=== PATIENT | female | born 1960 | race Caucasian/White ===

== ENCOUNTER 2017-03-11 20:52 | Emergency (ER) | payer SELFPAY ==
[~2017-03-11] VITALS: Ht 170.2 cm; Wt 70.0 kg
[2017-03-11 20:55] VITALS: BP 148/67; PULSE 80; RESP 16; TEMP 98.6; O2SAT 97
[2017-03-11] MEDS ORDERED: MUPI2OIN TOPICAL (22:21)
[2017-03-11] MEDS ORDERED: BACT800T5 PO (22:21)
[2017-03-11] MEDS ORDERED: CEPH500C PO (22:21)
[2017-03-11] MEDS ORDERED: CLINDAMYCIN INJ 600 MG in SODIUM CHLORIDE 0.9% INJ 100 ML IV ONE (23:45)
[2017-03-12 00:29] LABS: AUTOMATED NEUTROPHIL # 7.8 TH/MM3 (1.8-7.7); BASOPHIL % 0.2 % (0.0-2.0); EOSINOPHIL # 0.1 TH/MM3 (0-0.4); EOSINOPHIL % 0.9 % (0.0-4.0); HEMATOCRIT 36.2 % (35.0-46.0); HEMO FLAGS DIFF FINAL; LYMPH % 14.6 % (9.0-44.0); LYMPHOCYTE # 1.6 TH/MM3 (1.0-4.8); MEAN CELL VOLUME 86.3 FL (80.0-100.0); MEAN CORPUSCULAR HGB CONC 33.6 % (32.0-36.0); MONO % 12.7 % (0.0-8.0); NEUT % 71.6 % (16.0-70.0); PLATELET COUNT 258 TH/MM3 (150-450); RED CELL DISTRIBUTION WIDTH 14.5 % (11.6-17.2); WHITE BLOOD COUNT 10.9 TH/MM3 (4.0-11.0)
[2017-03-12 00:56] LABS: BICARBONATE 25.7 MEQ/L (21.0-32.0); POTASSIUM 4.1 MEQ/L (3.5-5.1)
[2017-03-12 01:32] VITALS: BP 145/75; PULSE 87; RESP 18; O2SAT 100
--- NOTE | 2017-03-12 01:56 | PD ---
HPI Chief Complaint: Skin Problem Time Seen by Provider: 23:26 Travel History International Travel<30 days: No Contact w/Intl Traveler<30days: No Traveled to known affect area: No History of Present Illness HPI 57yo F with no significant PMH presents to the ED with c/o right facial infection from came from the right ear. States she had a bug bite 4 days ago and her right ear became painful and swollen and is now spreading to right face. Pt saw an urgent care and started on bactrim and keflex 2 days ago. Pt said she has low grade fever. Denies any chest pain, sob, n/v, abdominal pain, drooling, change in voice. Pt said the pain is actually better but started noticing yellows dots on face today and that is why she came here. PFSH Past Medical History Cancer: Yes (BREAST CANCER IN SITU) ?: Not Past Surgical History Other Surgery: Yes (DBL MAST) Social History Alcohol Use: Yes (2 XS WEEKLY) Tobacco Use: No Substance Use: No Allergies-Medications (Allergen,Severity, Reaction): Coded Allergies: Penicillins (Verified Allergy, Unknown, 03/11/17) Reported Meds & Prescriptions Reported Meds & Active Scripts Active Reported Mupirocin Topical (Mupirocin) 2 % Oint 1 Applic TOPICAL TID Bactrim DS (Sulfamethoxazole-Trimethoprim) 800-160 Mg Tab 1 Tab PO BID Cephalexin 500 Mg Cap 500 Mg PO TID Review of Systems Except as stated in HPI: all other systems reviewed are Neg Physical Exam Narrative GENERAL: 57yo F not in distress. SKIN: +Raised erythematous patch on right face, right ear and right neck. There are little pustules on right face. HEAD: Atraumatic. Normocephalic. EYES: Pupils equal and round. No scleral icterus. No injection or drainage. ENT: Right external ear diffusely swollen and mildly ttp. No mastoid ttp. Throat: Uvula midline. No elevation of tongue. NECK: Trachea midline. No JVD. CARDIOVASCULAR: Regular rate and rhythm. No murmur appreciated. RESPIRATORY: No accessory muscle use. Clear to auscultation. Breath sounds equal bilaterally. GASTROINTESTINAL: Abdomen soft, non-tender, nondistended. MUSCULOSKELETAL: No obvious deformities. No clubbing. No cyanosis. No edema. NEUROLOGICAL: Awake and alert. No obvious cranial nerve deficits. Motor grossly within normal limits. Normal speech. PSYCHIATRIC: Appropriate mood and affect; insight and judgment normal. Data Data Last Documented VS Vital Signs Date Time Temp Pulse Resp B/P (MAP) Pulse Ox O2 Delivery O2 Flow Rate FiO2 03/12/17 01:32 18 03/12/17 01:32 03/12/17 01:32 87 100 03/11/17 20:55 98.6 Room Air Orders Orders Basic Metabolic Panel (Bmp) (03/11/17 23:39) Complete Blood Count With Diff (03/11/17 23:39) Clindamycin Inj (Cleocin Inj) (03/11/17 23:45) Ed Discharge Order (03/12/17 01:08) Labs Laboratory Tests Test 03/11/17 23:59 White Blood Count 10.9 TH/MM3 Red Blood Count 4.20 MIL/MM3 Hemoglobin 12.2 GM/DL Hematocrit 36.2 % Mean Corpuscular Volume 86.3 FL Mean Corpuscular Hemoglobin 29.0 PG Mean Corpuscular Hemoglobin Concent 33.6 % Red Cell Distribution Width 14.5 % Platelet Count 258 TH/MM3 Mean Platelet Volume 9.4 FL Neutrophils (%) (Auto) 71.6 % Lymphocytes (%) (Auto) 14.6 % Monocytes (%) (Auto) 12.7 % Eosinophils (%) (Auto) 0.9 % Basophils (%) (Auto) 0.2 % Neutrophils # (Auto) 7.8 TH/MM3 Lymphocytes # (Auto) 1.6 TH/MM3 Monocytes # (Auto) 1.4 TH/MM3 Eosinophils # (Auto) 0.1 TH/MM3 Basophils # (Auto) 0.0 TH/MM3 CBC Comment DIFF FINAL Differential Comment Blood Urea Nitrogen 17 MG/DL Creatinine 0.77 MG/DL Random Glucose 101 MG/DL Calcium Level 8.8 MG/DL Sodium Level 142 MEQ/L Potassium Level 4.1 MEQ/L Chloride Level 109 MEQ/L Carbon Dioxide Level 25.7 MEQ/L Anion Gap 7 MEQ/L Estimat Glomerular Filtration Rate 78 ML/MIN [facility] Medical Decision Making Medical Screen Exam Complete: Yes Emergency Medical Condition: Yes Differential Diagnosis Cellulitis vs. folliculitis vs. erysipela vs. chondritis Narrative Course 57yo well appearing female here with evaluation of right facial infection. Pt said infection has gotten better but has new yellow dots. She is nontoxic appearing with normal vital signs. Labs reviewed, no leukocytosis. BMP normal. Pt given IV clindamycin. Since pt has only had about 2 doses of her antibiotics, she can continue it and return to the ED if symptoms do not improve in 2 days. Return precautions given. Diagnosis Primary Impression: Erysipelas Referrals: Sotero Aleman MD call for appointment Patient Instructions: General Instructions Departure Forms: Tests/Procedures Additional Instructions: Please continue to take your antibiotics and return to the ED if symptoms worsen or do not improve in 2 days. Return to the ED immediately if symptoms worsen. Med/Other Pt SpecificInfo: No Change to Meds Disposition: 01 DISCHARGE HOME Condition: Stable yKlee Mena DO Mar 12, 2017 01:56
== END 2017-03-12 01:34 | disposition home or self-care (01) ==
LOC: NEPE 20:52
DX: A46 Erysipelas (principal); Z88.0 Allergy status to penicillin
CPT/HCPCS: 80048; 85025; 96365; 96366